=== PATIENT | male | born 1955 | race Caucasian/White ===

== ENCOUNTER 2020-10-21 08:12 | Emergency (ER) | payer SELFPAY ==
[~2020-10-21] VITALS: Ht 185.4 cm; Wt 81.6 kg
[2020-10-21 08:32] VITALS: BP 133/88
== END 2020-10-21 09:37 | disposition home or self-care (01) ==
LOC: ER 08:12
DX: S01.81XA Laceration without foreign body of other part of head, initial encounter (principal); W22.8XXA Striking against or struck by other objects, initial encounter; Y93.89 Activity, other specified; Y92.89 Other specified places as the place of occurrence of the external cause; Y99.8 Other external cause status
CPT/HCPCS: 12011